=== PATIENT | female | born 1975 | race Caucasian/White ===

== ENCOUNTER → 2025-06-13 | Outpatient (CLI) | payer MEDICAID, SELFPAY ==
--- NOTE | 2025-06-13 12:55 | XR_ITS ---
EXAMINATION: PA lateral chest 2 views TECHNIQUE: Upright PA lateral chest 2 views Date and time: June 13, 2025, 1301 hours INDICATIONS: Shortness of breath beginning 1 week ago. FINDINGS: Moderate to large bilateral pleural effusions Normal heart size Suspicious for pneumonia at the lung bases No pulmonary edema IMPRESSION: Moderate to large bilateral pleural effusions Suspicious for bibasilar pneumonia
== END | disposition home or self-care (01) ==
DX: J90 Pleural effusion, not elsewhere classified (principal)
CPT/HCPCS: 71046

== ENCOUNTER → 2025-06-20 | Outpatient (CLI) | payer MEDICAID, SELFPAY ==
--- NOTE | 2025-06-20 11:00 | XR_ITS ---
Examination: Breast ultrasound, unilateral, right Date and time of exam: June 20, 2025, 1119 hours INDICATIONS: Multiple palpable lumps in the right breast noticed beginning 10 years ago, diagnosis stage IV right breast cancer 2 years ago Technique: Real-time nuno scale ultrasonographic imaging performed right breast including all 4 quadrants as well as nipple retroareolar and axillary region. Findings: 12-3 o'clock irregular mass 4.4 x 1.3 x 4.2 cm 5:00 nodule circumscribed 11 x 9 mm 9:00 nodule indistinct margins 19 x 21 mm 9:00 cyst 5 x 4 mm 8:00 nodule lobular margins 10 x 12 mm 8:00 nodule indistinct margins 10 x 12 mm Retroareolar nodule circumscribed 3 x 4 mm Multiple axillary lymph nodes which appear abnormal with architectural distortion IMPRESSION: BI-RADS Category 4: Suspicious for malignancy Suspicious masses 12-3 o'clock, 9:00, 8:00 as well as abnormal axillary lymph nodes Recommend ultrasound-guided biopsy of the suspicious nodules as well as one of the abnormal axillary lymph nodes to confirm carcinoma
--- NOTE | 2025-06-20 11:30 | XR_ITS ---
Examination: Diagnostic digital mammography, bilateral Computer aided detection 3-D breast Tomosynthesis, bilateral Date and time of exam: June 20, 2025, 1105 hours INDICATIONS: Lump right breast along time, history right breast biopsy, history right breast carcinoma Technique: Nonmagnified MLO, CC views of the breasts to been obtained, reconstructed from 3-D Tomosynthesis images. R2 computer aided detection program utilized for evaluation of suspicious masses and/or abnormal calcifications. 3-D Tomosynthesis images obtained. Findings: The breasts are heterogeneously dense, which may obscure small masses Highly suspicious mass 12 to 3 o'clock position right breast, indistinct margins Please see the right breast sonogram report today indicating also suspicious nodules 9:00 and 8 o'clock position as well as abnormal axillary lymph nodes Impression: BI-RADS Category 4: Suspicious for malignancy Suspicious masses including on the right breast sonogram today 12 to 3 o'clock position right breast, 8 o'clock position, 9 o'clock position as well as abnormal axillary lymph nodes Biopsy ultrasound-guided of the 3 breast nodules and one of the abnormal axillary lymph nodes needed to confirm carcinoma.
== END | disposition home or self-care (01) ==
PROVIDERS: Referring Provider Internal Medicine; Visit Provider Internal Medicine
DX: R92.343 Mammographic extreme density, bilateral breasts (principal); N63.15 Unspecified lump in the right breast, overlapping quadrants; N63.13 Unspecified lump in the right breast, lower outer quadrant; C50.911 Malignant neoplasm of unspecified site of right female breast
CPT/HCPCS: 76641; 77062; 77066; G0279

== ENCOUNTER 2025-07-05 10:13 | Outpatient (RCR) | payer MEDICAID, SELFPAY ==
--- NOTE | 2025-07-05 11:16 | CTCCONSULT_ITS ---
Patient: DIANA BUTCHER : 1975 MR#: [id number] Page 2 of 2 CONSULTATION NOTE DATE OF CONSULTATION: 07/05/2025 NAME: DIANA BUTCHER ACCOUNT: [id number] : 1975 AGE: 49 REFERRING PHYSICIAN: Saurav Farfan MD PRIMARY PHYSICIAN: Saurav Farfan MD REASON FOR VISIT: Breast cancer establishing care ONCOLOGY HISTORY: DIAGNOSIS: DATE OF DIAGNOSIS: 07/05/2023 STAGE/TNM: Stage IV with mets to bones noted on PET CT scan on 10/14/2023 TREATMENT HISTORY: Care?Plan Start?Date Cycle Day Intent patient was on Lupron Depo 3.75 mg IM every 28 days and started on letrozole and Ibrance. 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 9 and the breast are heterogenous dense we have a note from [facility] Center patient's tumor was found to be HER2 negative by FISH. Invasive ductal carcinoma 08/12/2023 ER/[place] positive HER2 negative by FISH. Patient was seen on 09/21/2023 at that time found to have mass at 9 o'clock position and palpable lymph nodes in the right axilla -ER/MN +9593 Ki-67 20% HER2 2+ by IHC negative by FISH staged at least T2 N1 MX desired R mastectomy first but we felt suspicious nodes of right axilla and patient was offered neoadjuvant chemotherapy with AC and Taxol but unfortunately chemotherapy was not accepted. Patient did not had any surgery but did take antiendocrine therapy for about 6 months. Patient is now here to establish care as she is concerned that she may have underlying metastatic disease. Patient complaining of chest pain shortness of breath headaches on and off and mild nausea. Patient's baseline weight is 110. OTHER MEDICAL HISTORY/CONDITIONS: Right?breast?cancer? HTN Denies FAMILY HISTORY: Sibling: Mat Half brother- testicular - dx age 20 Cancer?History:?Pat?[id number]-da?40's Family history of breast cancer in paternal first cousin. Patient noticed right breast mass about 6 years before presenting in August 2023 SOCIAL HISTORY: Occupational?History:?Disabled Education?Level:?Completed High School Marital?Status:?Life?Partner Tobacco Use:?Smoked 37yrs -1PPD; smooking 6 cigarettes/day x 1 yr ETOH?Use:?Denies Drug?Note:?denies Social?History?Note:?Lives?with?fiance [employer] HISTORY: Menarche?-?Age:?13 :?3 Live?Births:?2 Age?1st?:?23 Gynecological?Note:?1? MEDICATIONS: 1. None Medications Last Reconciled by Aranza Medellin RN on 07/05/2025 ALLERGIES: REVIEW OF SYSTEMS: A complete 14-point review of systems was performed and is negative except as noted in interval history. PHYSICAL EXAMINATION: VITAL SIGNS: Temperature?98, B/P?138/88, Height?61?inches, Oxygen?Saturation?98% Weight?113?lbs PAIN: 5 - Between moderate and severe pain ECOG Performance Status: 1 - Symptomatic; ambulatory; restricted in strenuous activity GENERAL APPEARANCE: Appears well, in no apparent distress, appropriately interactive. HEENT: Normocephalic, no temporal wasting, normal conjunctiva, no scleral icterus, normal hearing, lips without lesions, neck normal range of motion. CARDIOVASCULAR: Not assessed. PULMONARY: Normal respiratory effort, no respiratory distress or use of accessory muscles, speaking in full sentences, no tachypnea. EXTREMITIES: No pedal edema or cyanosis. SKIN: Normal skin appearance. NEUROLOGIC: Alert and oriented x4. PSHYCHIATRIC: Appropriate affect, mood normal, behavior normal, intact thought and speech. 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 For last 10 years patient has been on disability secondary to malignancy. Patient have a headache nausea chest pain and shortness of breath and concerned that she might have progressed in her lungs No apparent weight loss as per patient Do not take multivitamins Patient is not in complete menopause. Patient had extended bleeding after Pap smear but also had a regular. About 5 months ago. Will check FSH LH estradiol levels Will order Lupron in anticipation if Ms. Butcher is premenopausal Will start on tamoxifen Will add Lupron and ribociclib if patient is premenopausal If patient is postmenopausal we will continue the ribociclib and letrozole Patient advised to take 1 tablet of tamoxifen daily patient can take it at any time if she forgets patient advised not to double up the next day patient to start with 1 tablet over every 24 hours advised to take vitamin D3 daily Staging scans with the brain MRI PET CT scan to evaluate for metastatic disease ordered CBC CMP estradiol LH FSH level ordered EKG and echocardiogram for preparation for ribociclib RTC in 3 weeks for follow-up ORDERS: Order # Description [id number] Gonadotropin (Fsh) + Estradiol + Gonadotropin; Luteinizing Hormone (Lh) [id number] Initial PET/CT of Skull to Mid-Thigh [id number] MRI + Brain + With Contrast [id number] Comprehensive Metabolic Panel - 12 + CBC with Auto Diff + MD Follow Up 3 Week RETURN TO CLINIC: I reviewed the diagnosis, prognosis, and recommended treatment/procedure options with the patient (and/or their legal employment representative), including the potential benefits, risks, side effects and alternative therapies. We also discussed the option of no treatment and the possibility of clinical trial participation, if applicable. All questions were addressed, and they demonstrated understanding. They provided informed consent to proceed with the proposed plan of care. BILLING AND COMPLIANCE: I reviewed external records from providers outside my specialty as summarized above. I spent a total of 50 minutes on this patient?s care on the day of their visit excluding time spent related to any billed procedures. This time includes time spent with the patient as well as time spent documenting in the medical record, reviewing patients records and tests, obtaining history, placing orders, communicating with other healthcare professionals, counseling the patient, family or caregiver, and/or care coordination for the diagnoses above. Electronically Signed by: Alfa Fraga MD T: 11:13 AM CC: Saurav?Naheed,? PCP: Saurav Farfan Referring: Saurav Farfan This document was completed utilizing speech recognition software. Grammatical errors, random word insertions, pronoun errors, and incomplete sentences are an occasional consequence of this system due to software limitations, ambient noise, and hardware issues. Any formal questions or concerns about the content, text or information contained within the body of this dictation should be directly addressed to the provider for clarification.
== END 2025-07-22 23:59 | disposition home or self-care (01) ==
LOC: SCTC 10:13
PROVIDERS: PCP Internal Medicine; Referring Provider Internal Medicine; Visit Provider Internal Medicine Hematology & Oncology
DX: C50.211 Malignant neoplasm of upper-inner quadrant of right female breast (principal); Z17.0 Estrogen receptor positive status [ER+]; Z17.21 Progesterone receptor positive status; Z17.32 Human epidermal growth factor receptor 2 negative status; R51.9 Headache, unspecified; R11.0 Nausea; R07.9 Chest pain, unspecified; R06.02 Shortness of breath
CPT/HCPCS: 99213; G0463

== ENCOUNTER → 2025-07-28 | Outpatient (CLI) | payer MEDICAID, SELFPAY ==
[2025-07-26 17:41] LABS: HCG Qualitative,Urine Negative
--- NOTE | 2025-07-28 16:15 | XR_ITS ---
EXAMINATION: MRI brain with intravenous contrast TECHNIQUE: Axial sagittal coronal brain MRI images post intravenous administration 10 cc gadolinium INDICATIONS: Diagnosis malignant neoplasm of unspecified site right female breast, dizziness memory issues worse the last 3 months Date and time: July 28, 2025, 1649 hours FINDINGS: Ventricles are normal in size No mass effect upon the ventricular system No effacement cortical sulci Fourth ventricle midline No abnormal enhancing cerebellar or cerebral lesions Normal pituitary Normal position of the cerebellar tonsils No disruption of the optic chiasm IMPRESSION: No abnormal enhancing cerebellar or cerebral lesions
== END | disposition home or self-care (01) ==
PROVIDERS: PCP Internal Medicine; Referring Provider Internal Medicine Hematology & Oncology; Visit Provider Internal Medicine Hematology & Oncology
DX: C50.911 Malignant neoplasm of unspecified site of right female breast (principal); Z32.00 Encounter for pregnancy test, result unknown
CPT/HCPCS: 70552; 81025; A9577

== ENCOUNTER → 2025-07-29 | Outpatient (CLI) | payer MEDICAID, SELFPAY ==
--- NOTE | 2025-07-29 15:00 | ECHO_ITS ---
Patient Info Name: Tatianna Shepard Age: 49 years : 1975 Gender: Female Ht: 155 cm Wt: 52 kg BSA: 1.50 m2 BP: 151 / 92 mmHg HR: 102 bpm Exam Date: 07/29/2025 2:59 PM Admit Date: 07/29/2025 Site: [facility] Room Number: OP Patient Status: O Exam Type: CA echo doppler complete Bosom Presser: Asya Kim Ordering Physician: Alfa Fraga Referring Physician: Alfa Fraga Study Info Indications Malignant neoplasm of unspecified site of right female breas - Primary Location: [facility] Left Ventricular Outflow Tract Name Value Normal LVOT 2D LVOT Diameter 1.8 cm LVOT Doppler LVOT Peak Velocity 127 cm/s LVOT Mean Gradient 3 mmHg LVOT VTI 22 cm LVOT VTI/AV VTI Ratio 0.9 LVOT Stroke Volume 56 ml Pulmonic Valve Name Value Normal PV Doppler PV Peak Velocity 87 cm/s Mitral Valve Name Value Normal MV Doppler MV Decel Aguada 382 cm/s2 MV PHT 50 ms MV Area (PHT) 4.4 cm2 4.0-5.0 MV Diastolic Function MV E Peak Velocity 66 cm/s MV A Peak Velocity 66 cm/s MV E/A 1.0 MV Annular TDI MV Septal e' Velocity 5.7 cm/s MV E/e' (Septal) 11.7 MV Lateral e' Velocity 13.2 cm/s MV E/e' (Lateral) 5.0 MV e' Average 9.43 cm/s MV E/e' (Average) 8.3 Tricuspid Valve Name Value Normal TV Regurgitation Doppler TR Peak Velocity 221 cm/s Estimated PAP/RSVP RA Pressure 3 mmHg <=5 PA Systolic Pressure 23 mmHg <36 RV Systolic Pressure 23 mmHg <36 TV Annular TDI TV Lateral Carey s' Velocity 14.5 cm/s >=9.5 Aortic Valve Name Value Normal AV 2D/MM AV Cusp Sep (MM) 1.7 cm AV Doppler AV Peak Velocity 135 cm/s AV Mean Gradient 4 mmHg AV VTI 25 cm AV Area (Cont Eq VTI) 2.3 cm2 >=3.0 AV Area (Cont Eq Vasiliy) 2.4 cm2 AV DI (Vasiliy) 0.94 AV Regurgitation 2D LVOT Area 2.5 cm2 Ventricles Name Value Normal LV Dimensions 2D/MM IVS Diastolic Thickness (2D) 0.6 cm 0.6-0.9 LVID Diastole (2D) 5.3 cm 3.8-5.2 LVIW Diastolic Thickness (2D) 0.6 cm 0.6-0.9 LVID Systole (2D) 3.5 cm 2.2-3.5 LVOT Diameter 1.8 cm LV Mass (2D Cubed) 105.22 g 67.00-162.00 LV Mass Index (2D Cubed) 70 g/m2 43-95 Relative Wall Thickness (2D) 0.23 <=0.42 IVS/LVIW Diastolic Thickness (2D) 1.00 0.00-1.50 LV Fractional Shortening/Ejection Fraction 2D/MM LV Fractional Shortening (2D) 34 % 27-45 LV EF (2D Teichholz) 62 % RV Dimensions 2D/MM TV Lateral Carey s' Velocity 14.5 cm/s >=9.5 Atria Name Value Normal LA Dimensions LA Volume (4C A-L) 18 ml LA Volume (BP A-L) 22 ml Left Ventricle Left ventricular chamber dimension is normal. Left ventricular systolic function is normal with visually estimated ejection fraction of 60-65%. There is normal geometry noted in the left ventricle. Left ventricular segmental wall motion is normal. There is normal diastolic function in the left ventricle. Right Ventricle Right ventricular chamber dimension is normal. Right ventricular systolic function is normal. Left Atrium Left atrial chamber dimension is normal. Right Atrium Right atrial chamber dimension is normal. Aortic Valve The aortic valve is trileaflet. There is no aortic valve sclerosis. There is no aortic valve stenosis with a peak velocity of 135 cm/s, mean gradient of 4 mmHg, and aortic valve area of 2.3 cm2. There is no aortic valve regurgitation. Pulmonic Valve The pulmonic valve is normal. There is no pulmonic valve stenosis. There is no pulmonic regurgitation. Mitral Valve The mitral valve has normal leaflets. There is no mitral valve stenosis. There is trace mitral valve regurgitation. Tricuspid Valve The tricuspid valve leaflets are normal. There is no tricuspid valve stenosis. There is mild tricuspid valve regurgitation. No pulmonary hypertension, estimated pulmonary arterial systolic pressure is 23 mmHg and systemic blood pressure of 151 mmHg in systole. Pericardium/Pleural The pericardium appears normal. There is trivial pericardial effusion with no tamponade. Pleural effusion visualized. Inferior Vena Cava Normal inferior vena cava with >50% collapse upon inspiration consistent with normal right atrial pressure, 3 mmHg. Aorta The aortic measurements are indexed to age and body surface area. The aortic root at the sinus of Valsalva is not well visualized. The prox ascending aorta is not well visualized. Summary 1. Left ventricle size is normal and systolic function is normal. Estimated ejection fraction is 60-65%. There is normal diastolic function. 2. Right ventricle chamber size is normal and systolic function is normal. Estimated RVSP is 23 mmHg. 3. There is trace mitral valve regurgitation. 4. There is mild tricuspid valve regurgitation. 5. The left atrium is normal. The right atrium is normal. 6. Normal IVC with estimated RA pressure 3 mmHg. 7. Left pleural effusion present. Report Signatures Finalized by Sahra Briggs on 07/29/2025 08:01 PM
== END | disposition home or self-care (01) ==
LOC: SDIM 14:48
PROVIDERS: PCP Internal Medicine; Referring Provider Internal Medicine Hematology & Oncology; Visit Provider Internal Medicine Hematology & Oncology
DX: I08.1 Rheumatic disorders of both mitral and tricuspid valves (principal); J90 Pleural effusion, not elsewhere classified; C50.911 Malignant neoplasm of unspecified site of right female breast
CPT/HCPCS: 93306

== ENCOUNTER → 2025-08-03 | Outpatient (CLI) | payer MEDICAID, SELFPAY ==
--- NOTE | 2025-08-03 08:00 | XR_ITS ---
EXAMINATION: PET/CT FUSION SKULL TO THIGH EXAM DATE AND TIME: August 03, 2025, 0926 hours, comparison MR brain July 28, 2025 INDICATIONS: Diagnosis of breast cancer, staging prior to treatment CTDI:vol (mGy) 2.22 DLP: (mGycm) 175.47 PROCEDURE: 14.04 mCi FDG was administered intravenously To allow for distribution and uptake of radiotracer, the patient was allowed to rest quietly in a shielded room. Imaging was performed on an integrated 16-slice PET/CT scanner, with scanning from the skull base to the mid thigh. Serum blood glucose at the time of the injection was measured 92 mg/dL. CT scanning was performed without oral or intravenous contrast material. FINDINGS: Head and Neck: There is no solis hypermetabolism in the neck. The visualized portions of the brain are normal in appearance on CT. Chest: Hypermetabolic medial right breast mass, axial image 87, 25 mm Hypermetabolic lateral breast right mass, 21 mm Large bilateral pleural effusions Abdomen and Pelvis: There is no solis hypermetabolism in retroperitoneal or pelvic chains. The spleen is normal in size and FDG avidity. Musculoskeletal: Extensive abnormal hypermetabolic osseous metastatic disease, including right humeral head, left humeral head Sternum, numerous bilateral ribs, numerous axial skeleton hypermetabolic lesions including S3, S2, S1, L5, L4, L3, L1, T12, T11, T10, T7, T3, T4, posterior left iliac bone, right anterior iliac bone, posterior right iliac bone, bilateral acetabular regions, greater trochanter left hip. IMPRESSION: Hypermetabolic right breast lesions as above Large bilateral pleural effusions Widespread hypermetabolic osseous metastatic disease
== END | disposition home or self-care (01) ==
LOC: CDIM 07:45
PROVIDERS: PCP Internal Medicine; Referring Provider Internal Medicine Hematology & Oncology; Visit Provider Internal Medicine Hematology & Oncology
DX: N64.9 Disorder of breast, unspecified (principal); J90 Pleural effusion, not elsewhere classified; C79.9 Secondary malignant neoplasm of unspecified site; C79.51 Secondary malignant neoplasm of bone; C50.911 Malignant neoplasm of unspecified site of right female breast
CPT/HCPCS: 78815; A9552

== ENCOUNTER → 2025-08-03 | Outpatient (CLI) | payer MEDICAID, SELFPAY ==
--- NOTE | 2025-08-03 12:30 | XR_ITS ---
Examination: Pelvic ultrasound, transabdominal, complete Technique: Transabdominal ultrasound of the pelvis performed using grayscale imaging Date and time of exam: August 03, 2025, 1230 hours INDICATIONS: Pelvic swelling and pain beginning 2 weeks ago. FINDINGS: Uterus 7.4 cm endometrial stripe 0.2 cm No uterine mass Right ovary 4.2 cm arterial flow, 22 x 16 mm cyst Left ovary 5.0 cm arterial flow, 3.7 x 3.6 cm cyst IMPRESSION: Bilateral ovarian simple cysts
== END | disposition home or self-care (01) ==
LOC: CDIM 12:20
PROVIDERS: PCP Internal Medicine; Referring Provider Physician Assistant; Visit Provider Physician Assistant
DX: N83.292 Other ovarian cyst, left side (principal); N83.291 Other ovarian cyst, right side
CPT/HCPCS: 76856

== ENCOUNTER 2025-08-13 15:00 | Outpatient (RCR) | payer MEDICAID, SELFPAY ==
--- NOTE | 2025-08-27 02:42 | CTCFLWUP_ITS ---
Patient: DIANA BUTCHER : 1975 Page 3 of 4 FOLLOW UP NOTE DATE OF SERVICE: 08/07/2025 NAME: DIANA BUTCHER ACCOUNT: [id number] : 1975 AGE: 49 INTERVAL HISTORY: Patient here to follow-up on imaging results. Patient gives a very vague history of her menstruation. Patient says that Her normal menstrual period was about 2 years ago. 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 Patient has been taking tamoxifen ONCOLOGY HISTORY: DIAGNOSIS: DATE OF DIAGNOSIS: 07/05/2023 STAGE/TNM: Stage IV with mets to bones noted on PET CT scan on 08/13/2024 TREATMENT HISTORY: Care?Plan Start?Date Cycle Day Intent Lupron?Depot?3.75?monthly 07/05/2025 1 28 Palliative LH 55.7 FSH 57.2 estradiol 32.5 Patient do not have any menstruation now but her history as well as labs are very normal reliable. 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 9 and the breast are heterogenous dense we have a note from [facility] patient's tumor was found to be HER2 negative by FISH. Invasive ductal carcinoma 08/12/2023 ER/KS positive HER2 negative by FISH. Patient was seen on 09/21/2023 at that time found to have mass at 9 o'clock position and palpable lymph nodes in the right axilla -ER/KS +9593 Ki-67 20% HER2 2+ by IHC negative by FISH staged at least T2 N1 MX desired R mastectomy first but we felt suspicious nodes of right axilla and patient was offered neoadjuvant chemotherapy with AC and Taxol but unfortunately chemotherapy was not accepted. Patient did not had any surgery but did take antiendocrine therapy for about 6 months. Patient is now here to establish care as she is concerned that she may have underlying metastatic disease. Patient complaining of chest pain shortness of breath headaches on and off and mild nausea. Patient's baseline weight is 110. PMH PMH Sinay PMH significant manage 07/29/2025 brain MRI negative OTHER MEDICAL HISTORY/CONDITIONS: Right?breast?cancer HTN Denies FAMILY HISTORY: Sibling: Mat Half brother- testicular - dx age 20 Cancer?History:?Pat?[id number]?40's Family history of breast cancer in paternal first cousin. 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 MEDICATIONS: 1. cholecalciferol (vitamin D3) - 25 mcg (1,000 unit) 1 Capsule Daily 2. FLUoxetine - 20 mg 1 tab Daily 3. gabapentin - 300 mg 1 Capsule EVERY 8 HRS NEEDED 4. hydrOXYzine HCl - 10 mg 1 tab Every 8 Hours 5. letrozole - 2.5 mg 1 tab Daily 6. ondansetron - 4 mg 1 tab Every 6 Hours 7. ribociclib - 600 mg/day (200 mg x 3) 3 tab 3 tabs daily day 1 -21 days every 28 days 8. Suboxone - 8-2 mg 2.5 Strip Daily 9. tamoxifen - 20 mg 1 tab Daily 10. Wellbutrin XL - 300 mg 1 tab Daily Medications Last Reconciled by Aminah Connelly MD on 08/07/2025 ALLERGIES: No Known Drug Allergies REVIEW OF SYSTEMS: A complete 14-point review of systems was performed and is negative except as noted in interval history. PHYSICAL EXAMINATION: VITAL SIGNS: Temperature?97.1, B/P?154/95, Oxygen?Saturation?98% Weight?110?lbs PAIN: 0 - No pain ECOG Performance Status: 1 - Symptomatic; ambulatory; restricted in strenuous activity GENERAL APPEARANCE: Appears well, in no apparent distress, appropriately interactive. HEENT: Normocephalic, no temporal wasting, normal conjunctiva, no scleral icterus, normal hearing, lips without lesions, neck normal range of motion. CARDIOVASCULAR: Not assessed. PULMONARY: Normal respiratory effort, no respiratory distress or use of accessory muscles, speaking in full sentences, no tachypnea. EXTREMITIES: No pedal edema or cyanosis. SKIN: Normal skin appearance. NEUROLOGIC: Alert and oriented x4. PSHYCHIATRIC: Appropriate affect, mood normal, behavior normal, intact thought and speech. 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 For last 10 years patient has been on disability secondary to malignancy. Patient was complaining of weight loss and headache at the time of initial visit. MRI of the brain came back as negative PET CT scan performed metastatic disease Patient was started on Lupron injections to cause ovarian suppression Patient was started on tamoxifen and advised to start Will add Lupron and ribociclib if patient is premenopausal EKG and echocardiogram for preparation for ribociclib Sensitivity study all ordered RTC in 3 weeks for follow-up ORDERS: Order # Description [id number] Comprehensive Metabolic Panel - 12 + CBC with Auto Diff + MD Follow Up 4 Week RETURN TO CLINIC: I reviewed the diagnosis, prognosis, and recommended treatment/procedure options with the patient (and/or their legal c s s representative), including the potential benefits, risks, side effects and alternative therapies. We also discussed the option of no treatment and the possibility of clinical trial participation, if applicable. All questions were addressed, and they demonstrated understanding. They provided informed consent to proceed with the proposed plan of care. BILLING AND COMPLIANCE: I reviewed external records from providers outside my specialty as summarized above. I spent a total of 50 minutes on this patient?s care on the day of their visit excluding time spent related to any billed procedures. This time includes time spent with the patient as well as time spent documenting in the medical record, reviewing patients records and tests, obtaining history, placing orders, communicating with other healthcare professionals, counseling the patient, family or caregiver, and/or care coordination for the diagnoses above. Electronically Signed by: {Object.Sanct_ID*PnP.NameFL@M}, {Object.Sanct_ID*PnP.Suffix@U} D: {Object.Sanct_Date} T: {Object.Sanct_Time} CC: Saurav?Naheed,? PCP: Jonathon Perez Referring: Jonathon Perez This document was completed utilizing speech recognition software. Grammatical errors, random word insertions, pronoun errors, and incomplete sentences are an occasional consequence of this system due to software limitations, ambient noise, and hardware issues. Any formal questions or concerns about the content, text or information contained within the body of this dictation should be directly addressed to the provider for clarification.
== END 2025-08-22 23:59 | disposition home or self-care (01) ==
LOC: SCTC 15:00
PROVIDERS: PCP Family Medicine; Referring Provider Family Medicine; Visit Provider Internal Medicine Hematology & Oncology
DX: Z51.11 Encounter for antineoplastic chemotherapy (principal); C50.811 Malignant neoplasm of overlapping sites of right female breast; C50.211 Malignant neoplasm of upper-inner quadrant of right female breast; C79.51 Secondary malignant neoplasm of bone; Z17.0 Estrogen receptor positive status [ER+]; Z17.21 Progesterone receptor positive status; Z17.32 Human epidermal growth factor receptor 2 negative status
CPT/HCPCS: 96402; 99212; J1950; G0463